=== PATIENT | male | born 1950 | race Caucasian/White ===

== ENCOUNTER 2016-11-06 17:45 | Emergency (ER) | payer MEDICARE ==
[~2016-11-06 17:45] MED LIST: EPINEPHrine HCL (1:10,000) 1 MG/10 ML SYRINGE IV ONE
--- NOTE | 2016-11-06 18:19 | RADRPT ---
EXAM DATE/TIME: 11/06/2016 17:54 [place] COMPARISON: No previous studies available for comparison. INDICATIONS : Post Code MEDICAL HISTORY : None. SURGICAL HISTORY : None. ENCOUNTER: Initial ACUITY: 1 day PAIN SCORE: Non-responsive. LOCATION: Bilateral chest FINDINGS: Mild patchy air space opacities are seen in both lungs, most conspicuous in the right upper lobe. No large effusion seen. No pneumothorax. Endotracheal tube tip is approximately 3 cm above the iva. Considerable gastric distention noted. CONCLUSION: 1. Patchy bilateral air space opacities, especially the right upper lobe. 2. Appropriate position of the endotracheal tube tip. 3. Very distended stomach. Mahesh Gayle MD on November 06, 2016 at 18:16 Board Certified Radiologist. This report was verified electronically.
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
== END 2016-11-06 19:30 | disposition expired ==
LOC: EDBD 17:45 → NEPC 17:45 → NEPI 19:30
DX: I46.9 Cardiac arrest, cause unspecified (principal); R09.01 Asphyxia; X00.0XXA Exposure to flames in uncontrolled fire in building or structure, initial encounter
CPT/HCPCS: 31500; 71010; 92950; 99285; J0171